=== PATIENT | female | born 2000 | race Caucasian/White ===

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

== ENCOUNTER 2019-02-09 21:29 | Emergency (ER) | payer OTHER ==
[2019-02-09 22:38] VITALS: BP 120/62
--- NOTE | 2019-02-10 00:03 | ER Document Report ---
ED Medical Screen (RME) - General Chief Complaint: Abdominal Pain Stated Complaint: ABDOMINAL PAIN Time Seen by Provider: 02/09/19 23:55 Notes: Patient is a 18-year-old female presents to the emergency department with dysuria suprapubic abdominal pain. Patient states she was seen here end of November early December for pelvic inflammatory disease. States she took 3 different antibiotics and took them to completion. States initially her disc omfort got better in the last couple of days she noticed she has dysuria and some suprapubic abdominal tenderness. Patient states her last menstrual cycle was in early December. States she has not taken an at-home test. GENERAL: Alert, interacts well. No acute distress. ABDOMEN: Soft, suprapubic tenderness noted. Non-distended. Bowel sounds present in all 4 quadrants. I have greeted and performed a rapid initial assessment of this patient. A comprehensive ED assessment and evaluation of the patient, analysis of test results and completion of the medical decision making process will be conducted by additional ED providers. TRAVEL OUTSIDE OF THE [place] IN LAST 30 DAYS: No - Related Data Allergies/Adverse Reactions: No Known Allergies Allergy (Verified 02/09/19 23:40) Past Medical History - Social History Frequency of alcohol use: Occasional Drug Abuse: None Renal/ Medical History: Denies: Hx Peritoneal Dialysis Physical Exam - Vital signs Vitals: Temp Pulse Resp BP Pulse Ox 98.2 F 83 18 120/62 99 02/09/19 22:37 02/09/19 22:37 02/09/19 22:37 02/09/19 22:37 02/09/19 22:37 Course - Vital Signs Vital signs: Temp Pulse Resp BP Pulse Ox 98.2 F 83 18 120/62 99 02/09/19 22:37 02/09/19 22:37 02/09/19 22:37 02/09/19 22:37 02/09/19 22:37
[2019-02-10 00:41] LABS: APPEARANCE,URINE CLOUDY; BILIRUBIN,URINE NEGATIVE (NEGATIVE); COLOR,URINE YELLOW; GLUCOSE, URINE NEGATIVE (NEGATIVE); KETONES,URINE NEGATIVE (NEGATIVE); LEUKOCYTE ESTERASE,URINE LARGE (NEGATIVE); NITRITE,URINE NEGATIVE (NEGATIVE); PROTEIN,URINE 30 mg/dL (NEGATIVE); URINE SPECIFIC GRAVITY 1.035; UROBILINOGEN,URINE NEGATIVE mg/dL (<2.0)
[2019-02-10 02:03] LABS: CHLAM PCR NOT DETECTED (NOT DETECT); GON PCR NOT DETECTED (NOT DETECT)
[2019-02-10 02:47] LABS: BACTERIA (WET MOUNT) 4+ BACTERIA SEEN; RBCS (WET MOUNT) NO RBCS SEEN; T.VAGINALIS (WET MOUNT) NO TRICHOMONAS SEEN; WBCS (WET MOUNT) 4+ WBCS SEEN; YEAST (WET MOUNT) NO YEAST SEEN
[2019-02-10] MEDS ORDERED: CEPHALEXIN 500 MG CAPSULE PO ONE (03:14)
[2019-02-10] MEDS ORDERED: METRONIDAZOLE 500 MG TABLET PO ONE (03:14)
--- NOTE | 2019-02-10 03:17 | ER Document Report ---
HPI - HPI Patient complains to provider of: Dysuria Time Seen by Provider: 02/09/19 23:55 Pain Level: 4 Context: Patient is a 18-year-old female presents to the emergency department with dysuria suprapubic abdominal pain. Patient states she was seen here end of November early December for pelvic inflammatory disease. States she took 3 different antibiotics and took them to completion. States initially her discomfort got better in the last couple of days she noticed she has dysuria and some suprapubic abdominal tenderness. Patient states her last menstrual cycle was in early December. States she has not taken an at-home test. Patient's denying any fever or vomiting. - REPRODUCTIVE Reproductive: DENIES: : - DERM Skin Color: Normal Past Medical History - General Information source: Patient - Social History Smoking Status: Current Every Day Smoker Frequency of alcohol use: Occasional Drug Abuse: None Family History: Reviewed & Not Pertinent Patient has suicidal ideation: No Patient has homicidal ideation: No Renal/ Medical History: Denies: Hx Peritoneal Dialysis Vertical Provider Document - CONSTITUTIONAL Agree With Documented VS: Yes Notes: GENERAL: Alert, interacts well. No acute distress. HEAD: Normocephalic, atraumatic. EYES: Pupils equal, round, and reactive to light. Extraocular movements intact. ENT: Oral mucosa moist, tongue midline. [Nares patent, no nasal septal hematoma, TM's intact.] NECK: Full range of motion. Supple. Trachea midline. LUNGS: Clear to auscultation bilaterally, no wheezes, rales, or rhonchi. No respiratory distress. HEART: Regular rate and rhythm. No murmur ABDOMEN: Soft, non-tender. Non-distended. Bowel sounds present in all 4 quadrants. No suprapubic tenderness noted upon my examination. EXTREMITIES: Moves all 4 extremities spontaneously. No edema, normal radial and dorsalis pedis pulses bilaterally. No cyanosis. BACK: no cervical, thoracic, lumbar midline tenderness. No saddle anesthesia, normal distal neurovascular exam. No CVA tenderness noted bilaterally NEUROLOGICAL: Alert and oriented x3. Normal speech. cranial nerves II through XII grossly intact PSYCH: Normal affect, normal mood. SKIN: Warm, dry, normal turgor. No rashes or lesions noted. Pelvic: [place] [employer] RY[employer] Qu[place]. White malodorous discharge noted in the cul-de-sac, no cervical motion tenderness noted, no adnexal tenderness noted bilaterally. - INFECTION CONTROL TRAVEL OUTSIDE OF THE [place] IN LAST 30 DAYS: No Course - Re-evaluation Re-evalutation: 02/10/19 03:22 Laboratory 02/10/19 02/10/19 02/10/19 00:14 00:14 02:30 Urine Color YELLOW Urine Appearance CLOUDY Urine pH 5.0 Ur Specific [place] 1.035 Urine Protein 30 H Urine Glucose (UA) NEGATIVE Urine Ketones NEGATIVE Urine Blood SMALL H Urine Nitrite NEGATIVE Urine Bilirubin NEGATIVE Urine Urobilinogen NEGATIVE Ur Leukocyte Esterase LARGE H Urine WBC (Auto) 118 Urine RBC (Auto) 6 Squamous Epi Cells Auto 11 Urine Mucus (Auto) RARE Urine Ascorbic Acid NEGATIVE Urine HCG, Qual POSITIVE H Bacteria (Wet Prep) 4+ BACTERIA SEEN Trichomonas (Wet Prep) NO TRICHOMONAS SEEN Vaginal WBC 4+ WBCS SEEN Vaginal RBC NO RBCS SEEN Vaginal Yeast NO YEAST SEEN Chlamydia DNA (PCR) NOT DETECTED N.gonorrhoeae DNA (PCR) NOT DETECTED Upon my examination patient is exhibiting no abdominal discomfort. Patient also has noticed cervical motion tender as noted on pelvic exam. Patient's labs do show signs of urinary tract infection, positive hCG, positive bacterial vaginosis. Will treat for urinary tract infection and bacterial vaginosis. Discussed with patient need to follow-up with the health department for continued care of her . Patient stable for discharge. - Vital Signs Vital signs: Temp Pulse Resp BP Pulse Ox 98.2 F 83 18 120/62 99 02/09/19 22:37 02/09/19 22:37 02/09/19 22:37 02/09/19 22:37 02/09/19 22:37 - Laboratory Laboratory results interpreted by me: 02/10/19 00:14 Urine Protein 30 H Urine Blood SMALL H Ur Leukocyte Esterase LARGE H Urine HCG, Qual POSITIVE H Discharge - Discharge Clinical Impression: Bacterial vaginosis Urinary tract infection Qualifiers: Urinary tract infection type: site unspecified Hematuria presence: with hematuria Qualified Code(s): N39.0 - Urinary tract infection, site not specified; R31.9 - Hematuria, unspecified Qualifiers: Weeks of gestation: less than 8 weeks Qualified Code(s): Z3A.01 - Less than 8 weeks gestation of Condition: Stable Disposition: HOME, SELF-CARE Instructions: Urinary Tract Infection ([facility]), Cephalexin ([facility]), Vaginosis, Bacterial ([facility]), ([facility]) Additional Instructions: As we discussed you have been seen and treated in the emergency department for urinary tract infection and bacterial vaginosis. Your urine test is also came back positive. Please make sure you follow-up with the health department for continued care of your current . Please also return to the emergency room should you have any other concerning symptoms to include abdominal pain, vaginal bleeding or any other concerning symptoms. Prescriptions: Cephalexin Monohydrate [Keflex 500 mg Capsule] 500 mg PO BID 7 Days #14 capsule Metronidazole [Flagyl 500 mg Tablet] 500 mg PO BID #14 tablet Referrals: [facility] [NO LOCAL MD] - Follow up as needed
== END 2019-02-10 04:07 | disposition home or self-care (01) ==
LOC: ER 21:29
DX: O23.591 Infection of other part of genital tract in pregnancy, first trimester (principal); O23.41 Unspecified infection of urinary tract in pregnancy, first trimester; R31.9 Hematuria, unspecified; B96.89 Other specified bacterial agents as the cause of diseases classified elsewhere; O99.331 Smoking (tobacco) complicating pregnancy, first trimester; Z3A.01 Less than 8 weeks gestation of pregnancy
CPT/HCPCS: 81001; 81025; 87086; 87210; 87491; 87591; 99283

== ENCOUNTER 2019-05-13 01:47 | Emergency (ER) | payer OTHER ==
[2019-05-13] MEDS ORDERED: ACETAMINOPHEN 325 MG TABLET PO ONE (05:00)
--- NOTE | 2019-05-13 05:17 | ER Document Report ---
Doctor's Note Notes: 05/13/19 05:16 I performed a rapid medical screening exam in triage evaluation the patient. Patient is a 18-year-old female who presents with complaints of right-sided pelvic and right lower quadrant abdominal pain. She is denies any fevers. No vomiting. No diarrhea. No dysuria. She is also had some associated abnormal vaginal discharge and some vaginal spotting. She is 19 weeks . [facility]. She has had no complications with the thus far. She has had previous ultrasounds which were normal. She says this is her first . She says her blood type is A+. On exam patient has some pain that is mainly in the right pelvic region. I have ordered ultrasound and urinalysis to begin her work-up. Also ordered Tylenol for pain. Further orders and work-up and medical decision making will be performed by oncoming medical provider. Dictation of this chart was performed using voice recognition software; therefore, there may be some unintended grammatical errors.
[2019-05-13 05:37] VITALS: BP 96/50
[2019-05-13 05:58] LABS: APPEARANCE,URINE SLIGHTLY-CLOUDY; BILIRUBIN,URINE NEGATIVE (NEGATIVE); COLOR,URINE YELLOW; GLUCOSE, URINE NEGATIVE (NEGATIVE); KETONES,URINE NEGATIVE (NEGATIVE); LEUKOCYTE ESTERASE,URINE MODERATE (NEGATIVE); NITRITE,URINE NEGATIVE (NEGATIVE); PROTEIN,URINE NEGATIVE (NEGATIVE); URINE SPECIFIC GRAVITY 1.003; UROBILINOGEN,URINE NEGATIVE mg/dL (<2.0)
--- NOTE | 2019-05-13 06:55 | RADIOLOGY REPORT (SQ) ---
EXAM DESCRIPTION: US FOLLOW UP COMPLETED DATE/TME: 05/13/2019 05:15 CLINICAL HISTORY: 18 years Female, Right pelvic pain in Comparison: None. TECHNIQUE/LIMITATION: Targeted OB sonogram for requested parameters only. FINDINGS: Single IUP EGA is 17w5d with KEKE of 10/16/19 EFW is 204g Cardiac activity: 135-bpm. ALIDA: Adequate. Placenta: Anterior. No demonstrated abruption or previa. Presentation: Vertex Cervical length: 3.2-cm. Closed appearance. IMPRESSION: Targeted OB sonogram for requested parameters
--- NOTE | 2019-05-13 07:09 | ER Document Report ---
ED GI/ - General Chief Complaint: OB Problem (<20wks) Stated Complaint: PELVIC PAIN AND VAGINAL DISCHARGE Time Seen by Provider: 05/13/19 05:15 Notes: Patient is a 18-year-old female, G1, P0 at reportedly 19 weeks gestation by first ultrasound, that comes emergency department for chief complaint of right- sided pelvic pain, intermittent cramping, intermittent vaginal spotting, and some abnormal vaginal discharge. She states she has been having this for the past several days worse than before but she has been having intermittent cramping and spotting throughout her . She reports her blood type is a positive. She is following with [facility]. She denies trauma, fever, dysuria, flank pain. She denies any diagnosed medical problems. TRAVEL OUTSIDE OF THE [place] IN LAST 30 DAYS: No - Related Data Allergies/Adverse Reactions: No Known Allergies Allergy (Verified 05/13/19 01:59) Past Medical History - General Information source: Patient Last Menstrual Period: 01/11/19 - Social History Smoking Status: Current Every Day Smoker Chew tobacco use (# tins/day): No Frequency of alcohol use: None Drug Abuse: None Lives with: Family Family History: Reviewed & Not Pertinent Patient has suicidal ideation: No Patient has homicidal ideation: No - Past Medical History Cardiac Medical History: Reports: Hx Hypertension Renal/ Medical History: Denies: Hx Peritoneal Dialysis - Immunizations Hx Diphtheria, Pertussis, Tetanus Vaccination: Yes Review of Systems - Review of Systems Constitutional: No symptoms reported EENT: No symptoms reported Cardiovascular: No symptoms reported Respiratory: No symptoms reported Gastrointestinal: See HPI Genitourinary: No symptoms reported Female Genitourinary: See HPI Musculoskeletal: No symptoms reported Skin: No symptoms reported Hematologic/Lymphatic: No symptoms reported Neurological/Psychological: No symptoms reported Physical Exam - Vital signs Vitals: Temp Pulse Resp BP Pulse Ox 98.8 F 92 H 18 119/65 99 05/13/19 01:51 05/13/19 01:51 05/13/19 01:51 05/13/19 01:51 05/13/19 01:51 - Notes Notes: GENERAL: Alert, interacts well. No acute distress. HEAD: Normocephalic, atraumatic. EYES: Pupils equal, round, and reactive to light. Extraocular movements intact. ENT: Oral mucosa moist, tongue midline. Oropharynx unremarkable. Airway patent. Nares patent, no nasal septal hematoma LUNGS: Clear to auscultation bilaterally, no wheezes, rales, or rhonchi. No respiratory distress. HEART: Regular rate and rhythm. No murmur ABDOMEN: Mildly distended consistent with gravid abdomen. Soft, no guarding or rigidity. There is generalized pelvic tenderness, slightly worse on the right, however there is no severe tenderness. GENITOURINARY: No lesions, no bleeding, closed cervix. There is a moderately large amount of vaginal discharge which is whitish in color, there is some tenderness but no severe cervical motion tenderness. EXTREMITIES: Moves all 4 extremities spontaneously. No edema, normal radial and dorsalis pedis pulses bilaterally. No cyanosis. BACK: no cervical, thoracic, lumbar midline tenderness. No saddle anesthesia, normal distal neurovascular exam. Moves all extremities in full range of motion. NEUROLOGICAL: Alert and oriented x3. Normal speech. Cranial nerves II through XII grossly intact. PSYCH: Normal affect, normal mood. SKIN: Warm, dry, normal turgor. No rashes or lesions noted. Course - Re-evaluation Re-evalutation: Patient is well-appearing, unremarkable vital signs. She does have some tenderness in the lower abdomen over the pelvic area, slightly worse on the right. There is no guarding or rigidity, there is no McBurney's tenderness. Physical examination shows moderately large amount of vaginal discharge, some tenderness on speculum exam, no overt cervical motion tenderness. No current bleeding noted. Urinalysis nonspecific, culture placed. Ultrasound is normal with no concerning findings, intrauterine at 17 weeks 5 days. Pelvic exam shows 3+ bacteria, 3+ white blood cells, no trichomonas. Because of patient's symptoms, discharge, bacteria, white blood cells, discussed with patient, decision was made to treat her for a pelvic infection. She is requesting with nausea medication at home, she was provided with Reglan. She has SIDING INSTALLER follow-up. Discussed expectations, follow-up, and return precautions. Patient states understanding and agreement. Stable at time of discharge. - Vital Signs Vital signs: Temp Pulse Resp BP Pulse Ox 98.8 F 64 20 96/50 L 99 05/13/19 01:51 05/13/19 05:35 05/13/19 05:35 05/13/19 05:35 05/13/19 05:35 - Laboratory Laboratory results interpreted by me: 05/13/19 02:37 Ur Leukocyte Esterase MODERATE H Discharge - Discharge Clinical Impression: Pelvic pain Vaginal discharge during Qualifiers: Trimester: unspecified trimester Qualified Code(s): O26.899 - Other specified related conditions, unspecified trimester Condition: Stable Disposition: HOME, SELF-CARE Additional Instructions: Your work-up shows a normal-appearing , but does show evidence of a pelvic infection. You have been covered for this. I recommend completion of the pelvic infection with the Flagyl at home. Take the Reglan as needed for nausea. Follow-up with SIDING INSTALLER. Return if you worsen including severe worsening pain, fever, uncontrolled vomiting, or any other concerning worsening symptoms. Prescriptions: Metoclopramide HCl [Reglan] 5 mg PO ASDIR PRN #30 tablet PRN Reason: Metronidazole [Flagyl 500 mg Tablet] 500 mg PO BID 7 Days #14 tablet
[2019-05-13 07:30] LABS: BACTERIA (WET MOUNT) 3+ BACTERIA SEEN; EPITHELIALS (WET MOUNT) 3+ EPITHELIALS SEEN; RBCS (WET MOUNT) FEW RBCS SEEN; T.VAGINALIS (WET MOUNT) NO TRICHOMONAS SEEN; WBCS (WET MOUNT) 3+ WBCS SEEN; YEAST (WET MOUNT) NO YEAST SEEN
[2019-05-13] MEDS ORDERED: AZITHROMYCIN 250 MG TABLET PO ONE (07:36)
[2019-05-13] MEDS ORDERED: LIDOCAINE 1% INJ-PF (10 MG/ML) 30 ML SDV INJ ONE (07:36)
[2019-05-13] MEDS ORDERED: CEFTRIAXONE INJ 250 MG VIAL IM ONE (07:36)
[2019-05-13 09:00] LABS: CHLAM PCR NOT DETECTED (NOT DETECT)
== END 2019-05-13 08:12 | disposition home or self-care (01) ==
LOC: ER 01:47
DX: O26.892 Other specified pregnancy related conditions, second trimester (principal); R10.2 Pelvic and perineal pain; N89.8 Other specified noninflammatory disorders of vagina; O26.852 Spotting complicating pregnancy, second trimester; O99.332 Smoking (tobacco) complicating pregnancy, second trimester; F17.200 Nicotine dependence, unspecified, uncomplicated; O16.2 Unspecified maternal hypertension, second trimester; Z3A.17 17 weeks gestation of pregnancy
CPT/HCPCS: 99284; 96374; 96375; 87210; 81001; 87491; 87591; 76805; 93976; J3490; J0696

== ENCOUNTER 2019-05-19 18:07 | Emergency (ER) | payer OTHER, MEDICAID ==
--- NOTE | 2019-05-19 18:45 | ER Document Report ---
ED General - General Chief Complaint: OB Problem (<20wks) Stated Complaint: BLEEDING WITH Time Seen by Provider: 05/19/19 18:26 Primary Care Provider: STORMY JOHNSON MD [Primary Care Provider] - Follow up as needed Notes: 18-year-old female, G1, P0 with estimated gestation 17 weeks 5 days on ultrasound performed here on May 13 for chief complaint of vaginal bleeding and abnormal vaginal discharge. P patient's return precautions upon discharge from previous visit were to return if her bleeding became worse which it did. Patient was prescribed Flagyl for bacterial vaginosis and she has approximately 36 hours left and has been taking it as directed. Patient states the bleeding was heavier than the prior visit like a. And she noticed it on her underwear and when she wiped. She has a cramping in the left lower quadrant and also abdominal pain in the suprapubic area. She states that the bleeding from her previous visit did resolve and started just prior to arrival today. She is followed by [facility]. She denies any trauma, fever, dysuria, flank pain no medical problems. TRAVEL OUTSIDE OF THE [place] IN LAST 30 DAYS: No - Related Data Allergies/Adverse Reactions: No Known Allergies Allergy (Verified 05/13/19 01:59) Past Medical History - Social History Smoking Status: Unknown if Ever Smoked Family History: Reviewed & Not Pertinent - Past Medical History Cardiac Medical History: Reports: Hx Hypertension Renal/ Medical History: Denies: Hx Peritoneal Dialysis - Immunizations Hx Diphtheria, Pertussis, Tetanus Vaccination: Yes Review of Systems - Review of Systems Constitutional: See HPI EENT: No symptoms reported Cardiovascular: No symptoms reported Respiratory: No symptoms reported Gastrointestinal: See HPI Genitourinary: See HPI Female Genitourinary: See HPI Musculoskeletal: See HPI Skin: No symptoms reported Hematologic/Lymphatic: No symptoms reported Neurological/Psychological: No symptoms reported Physical Exam - Vital signs Vitals: Temp Pulse Resp BP Pulse Ox 98.8 F 85 24 140/69 H 97 05/19/19 18:13 05/19/19 18:13 05/19/19 18:13 05/19/19 18:13 05/19/19 18:13 - Notes Notes: PHYSICAL EXAMINATION: Reviewed vital signs and charting by RN GENERAL: Alert, interacts well. No acute distress. HEAD: Normocephalic, atraumatic. EYES: Pupils equal and round. Extraocular movements intact. ENT: Oral mucosa moist, tongue midline. NECK: Full range of motion. Trachea midline. LUNGS: Clear to auscultation bilaterally, no wheezes, rales, or rhonchi. No respiratory distress. HEART: Regular rate and rhythm. No murmur ABDOMEN: soft, mildly gravid abdomen. Bowel sounds present. Acute tenderness to palpation just below the umbilicus and in the left lower quadrant GENITOURINARY: No lesions, no bleeding, closed cervix. There is a moderately large amount of vaginal discharge which is whitish/green in color, tenderness on speculum exam and there was cervical motion tenderness present EXTREMITIES: Moves all 4 extremities spontaneously. No edema, No cyanosis. PSYCH: Normal affect, normal mood. SKIN: Warm, dry, normal turgor. No rashes or lesions noted. Course - Re-evaluation Re-evalutation: 05/19/19 18:49 Patient returns to the ED for vaginal bleeding while and abnormal vaginal discharge. Patient almost completed Flagyl course and has not missed any doses. Plan is to get a repeat ultrasound that is more generalized and perform a pelvic exam. I will get some basic blood work on her today. 05/19/19 22:30 I spoke with the java lead occupational therapy technician Dr. Almaz Williamson who is reassured with all of the patient's findings. She said that there was no risk of bleeding as there was absolutely no blood in the urine even with a contaminated sample, her discharge is leukorrhea, and we could not diagnose her with BV in the absence of using THI and performing a wiff test as our institution truly does not test for BV, per her. Also I asked the ammonia technician to perform an addendum and the patient went back for a transvaginal ultrasound to measure the length of the cervix which was adequate, the cervical loss was closed, and it showed an anterior placenta. At this time I will relay this to the patient and she is stable for discharge with routine follow-up with her java lead. - Vital Signs Vital signs: Temp Pulse Resp BP Pulse Ox 98.8 F 85 24 140/69 H 97 05/19/19 18:13 05/19/19 18:13 05/19/19 18:13 05/19/19 18:13 05/19/19 18:13 - Laboratory Result Diagrams: 05/19/19 18:35 05/19/19 18:35 Laboratory results interpreted by me: 05/19/19 05/19/19 05/19/19 18:35 18:35 18:35 Hgb 11.9 L Hct 34.1 L Sodium 136.1 L Carbon Dioxide 19 L Creatinine 0.46 L Ur Leukocyte Esterase MODERATE H Discharge - Discharge Clinical Impression: Vaginal bleeding during Condition: Good Disposition: HOME, SELF-CARE Additional Instructions: You were seen in the emergency department this evening for abnormal discharge and vaginal bleeding and . After speaking with the java lead occupational therapy technician your work-up was very reassuring and it is most likely due to normal spotting. Also, the white discharge you are experiencing is something called leukorrhea which is a normal finding in . The ultrasound was reassuring and show that you do not have evidence of placenta previa and your cervical loss was closed. All things point to a normal . If you develop truly heavy vaginal bleeding severe intractable abdominal pain, you become dizzy/lightheaded/passout with vaginal bleeding, you have foul-smelling greenish/yellow vaginal discharge, or you have any other concerning symptoms please immediately return to the emergency department. Referrals: STORMY JOHNSON MD [Primary Care Provider] - Follow up as needed
[2019-05-19 18:50] LABS: ABSOLUTE BASOPHILS # (AUTO) 0.1 10^3/uL (0.0-0.2); ABSOLUTE EOSINOPHILS # (AUTO) 0.3 10^3/uL (0.0-0.6); ABSOLUTE LYMPHOCYTES (AUTO) 1.8 10^3/uL (0.5-4.7); ABSOLUTE MONOCYTES (AUTO) 0.5 10^3/uL (0.1-1.4); ABSOLUTE NEUT (AUTO) 6.3 10^3/uL (1.7-8.2); BASOPHILS % (AUTO) 0.8 % (0-2); EOSINOPHILS % (AUTO) 3.4 % (0-6); HEMATOCRIT 34.1 % (36.0-47.0); HEMOGLOBIN 11.9 g/dL (12.0-15.5); LYMPHOCYTES % (AUTO) 19.6 % (13-45); MEAN CORPUSCULAR HEMOGLOBIN 28.7 pg (27.0-33.4); MEAN CORPUSCULAR HGB CONC 34.9 g/dL (32.0-36.0); MEAN CORPUSCULAR VOLUME 82 fl (80-97); MONOCYTES % (AUTO) 5.8 % (3-13); PLATELET COUNT 248 10^3/uL (150-450); RED BLOOD COUNT 4.15 10^6/uL (3.72-5.28); RED CELL DISTRIBUTION WIDTH 13.7 % (11.5-14.0); SEGMENTED NEUTROPHILS % (AUTO) 70.4 % (42-78); TOTAL CELLS COUNTED % (AUTO) 100 %
[2019-05-19 19:05] LABS: APPEARANCE,URINE SLIGHTLY-CLOUDY; BILIRUBIN,URINE NEGATIVE (NEGATIVE); COLOR,URINE YELLOW; GLUCOSE, URINE NEGATIVE (NEGATIVE); KETONES,URINE NEGATIVE (NEGATIVE); LEUKOCYTE ESTERASE,URINE MODERATE (NEGATIVE); NITRITE,URINE NEGATIVE (NEGATIVE); PROTEIN,URINE NEGATIVE (NEGATIVE); URINE SPECIFIC GRAVITY 1.018; UROBILINOGEN,URINE NEGATIVE mg/dL (<2.0)
[2019-05-19 19:08] LABS: ALBUMIN 3.8 g/dL (3.7-5.6); ALKALINE PHOSPHATASE 87 U/L (50-135); ANION GAP 11 (5-19); ASPARTATE AMINO TRANSFERASE 18 U/L (5-30); BILIRUBIN,DIRECT 0.2 mg/dL (0.0-0.4); BILIRUBIN,TOTAL 0.2 mg/dL (0.2-1.3); BLOOD UREA NITROGEN 7 mg/dL (7-20); CALCIUM 9.2 mg/dL (8.4-10.2); CARBON DIOXIDE 19 mmol/L (22-30); CHLORIDE 106 mmol/L (98-107); GLUCOSE 97 mg/dL (75-110); POTASSIUM 4.1 mmol/L (3.6-5.0); TOTAL PROTEIN 6.8 g/dL (6.3-8.2)
[2019-05-19 19:34] LABS: BACTERIA (WET MOUNT) 3+ BACTERIA SEEN; EPITHELIALS (WET MOUNT) 3+ EPITHELIALS SEEN; RBCS (WET MOUNT) NO RBCS SEEN; T.VAGINALIS (WET MOUNT) NO TRICHOMONAS SEEN; WBCS (WET MOUNT) 1+ WBCS SEEN; YEAST (WET MOUNT) NO YEAST SEEN
--- NOTE | 2019-05-19 20:59 | RADIOLOGY REPORT (SQ) ---
EXAM DESCRIPTION: US FOLLOW UP COMPLETED DATE/TME: 05/19/2019 18:40 CLINICAL HISTORY: 18 years, Female, vaginal bleeding, periumbilical pain, LLQ pain COMPARISON: None. TECHNIQUE: Axial 2-D grayscale images of the pelvis were performed. Doppler was utilized. LIMITATIONS: None. FINDINGS: Single intrauterine is identified with measurements as follows: Placenta is anterior. presentation is vertex. heart rate is 147 bpm Cervix measures 3.4 cm in length, closed. Biparietal diameter: 4.2 cm Head circumference: 15.1 cm Abdominal circumference: 13.56 cm Femoral length: 2.85 cm Estimated gestational age is 18 weeks and 6 days for an estimated date of delivery of 10/14/2019. Estimated weight is 9 ounces. IMPRESSION: Single viable intrauterine , as above described. No acute findings. copyright 2010 [employer]- All Rights Reserved
[2019-05-19 22:17] LABS: CHLAM PCR NOT DETECTED (NOT DETECT)
[2019-05-19 22:44] VITALS: BP 128/67
== END 2019-05-19 22:44 | disposition home or self-care (01) ==
LOC: ER 18:07
DX: O20.9 Hemorrhage in early pregnancy, unspecified (principal); R10.32 Left lower quadrant pain; Z3A.17 17 weeks gestation of pregnancy
CPT/HCPCS: 36415; 76805; 80053; 81001; 85025; 87210; 87491; 87591; 93976; 99284

== ENCOUNTER 2019-06-04 17:58 | Emergency (ER) | payer OTHER, MEDICAID ==
--- NOTE | 2019-06-04 19:24 | ER Document Report ---
ED Medical Screen (RME) - General Chief Complaint: Vaginal Discharge Stated Complaint: VAGINAL DISCHARGE Time Seen by Provider: 06/04/19 18:47 Primary Care Provider: STORMY JOHNSON MD [Primary Care Provider] - Follow up as needed TRAVEL OUTSIDE OF THE [place] IN LAST 30 DAYS: No - HPI Notes: 06/04/19 18:58 18-year-old female to the emergency department with complaints of green vaginal discharge and lower abdominal cramping for the past 3 weeks. She states that she just found out today that her new tested positive for chlamydia and herpes. She denies any vaginal sores. She is 21 weeks . She denies any fevers, chills. She also admits to sore throat and right ear pain. She states that she is also been struggling with her manic depression. She states that she is been feeling very anxious and depressed recently. She saw her PROCESS COACH on and was referred to a therapist. She is not on anti- antidepressants during this . She denies any suicidal ideation. However she does state that she feels incredibly overwhelmed and finding out today that her has chlamydia and herpes has only made her mental health worse. I performed a medical screening exam on the patient. We will go ahead and order labs as well as pelvic exam with gonorrhea and chlamydia swabs as well as wet mount and urinalysis. Have discussed with patient and she agrees with the plan. She will be bedded on the main side and seen by provider for further management and evaluation. - Related Data Allergies/Adverse Reactions: No Known Allergies Allergy (Verified 05/13/19 01:59) Past Medical History - Social History Frequency of alcohol use: None Drug Abuse: None - Past Medical History Cardiac Medical History: Reports: Hx Hypertension Renal/ Medical History: Denies: Hx Peritoneal Dialysis - Immunizations Hx Diphtheria, Pertussis, Tetanus Vaccination: Yes Physical Exam - Vital signs Vitals: Temp Pulse Resp BP Pulse Ox 99.5 F 99 H 18 128/70 H 96 06/04/19 18:09 06/04/19 18:09 06/04/19 18:09 06/04/19 18:09 06/04/19 18:09 Course - Vital Signs Vital signs: Temp Pulse Resp BP Pulse Ox 99.5 F 99 H 18 128/70 H 96 06/04/19 18:09 06/04/19 18:09 06/04/19 18:09 06/04/19 18:09 06/04/19 18:09 Doctor's Discharge - Discharge Referrals: STORMY JOHNSON MD [Primary Care Provider] - Follow up as needed
[2019-06-04] MEDS ORDERED: AZITHROMYCIN 1 GM SUSP PACKET PO ONE (20:27)
[2019-06-04] MEDS ORDERED: CEFTRIAXONE INJ 250 MG VIAL IM ONE (20:27)
[2019-06-04 20:50] LABS: ABSOLUTE EOSINOPHILS # (AUTO) 0.2 10^3/uL (0.0-0.6); ABSOLUTE LYMPHOCYTES (AUTO) 2.3 10^3/uL (0.5-4.7); ABSOLUTE MONOCYTES (AUTO) 0.5 10^3/uL (0.1-1.4); ABSOLUTE NEUT (AUTO) 6.9 10^3/uL (1.7-8.2); BASOPHILS % (AUTO) 0.2 % (0-2); EOSINOPHILS % (AUTO) 2.4 % (0-6); HEMATOCRIT 33.6 % (36.0-47.0); HEMOGLOBIN 11.7 g/dL (12.0-15.5); MEAN CORPUSCULAR HEMOGLOBIN 29.4 pg (27.0-33.4); MEAN CORPUSCULAR HGB CONC 34.9 g/dL (32.0-36.0); MEAN CORPUSCULAR VOLUME 84 fl (80-97); MONOCYTES % (AUTO) 4.8 % (3-13); PLATELET COUNT 252 10^3/uL (150-450); RED CELL DISTRIBUTION WIDTH 14.1 % (11.5-14.0); SEGMENTED NEUTROPHILS % (AUTO) 69.6 % (42-78); TOTAL CELLS COUNTED % (AUTO) 100 %
[2019-06-04 20:59] LABS: AMORPHOUS SEDIMENT,URINE TRACE /HPF; APPEARANCE,URINE CLOUDY; BILIRUBIN,URINE NEGATIVE (NEGATIVE); COLOR,URINE YELLOW; GLUCOSE, URINE NEGATIVE (NEGATIVE); KETONES,URINE NEGATIVE (NEGATIVE); LEUKOCYTE ESTERASE,URINE SMALL (NEGATIVE); NITRITE,URINE NEGATIVE (NEGATIVE); PROTEIN,URINE NEGATIVE (NEGATIVE); URINE SPECIFIC GRAVITY 1.024; UROBILINOGEN,URINE NEGATIVE mg/dL (<2.0)
[2019-06-04 21:08] LABS: ALBUMIN 4.1 g/dL (3.7-5.6); ALKALINE PHOSPHATASE 99 U/L (50-135); ANION GAP 13 (5-19); ASPARTATE AMINO TRANSFERASE 16 U/L (5-30); BILIRUBIN,DIRECT 0.3 mg/dL (0.0-0.4); BILIRUBIN,TOTAL 0.3 mg/dL (0.2-1.3); BLOOD UREA NITROGEN 10 mg/dL (7-20); CALCIUM 10.1 mg/dL (8.4-10.2); CARBON DIOXIDE 21 mmol/L (22-30); CHLORIDE 103 mmol/L (98-107); GLUCOSE 92 mg/dL (75-110); POTASSIUM 4.3 mmol/L (3.6-5.0); TOTAL PROTEIN 7.1 g/dL (6.3-8.2)
[2019-06-04 21:09] LABS: ACETAMINOPHEN < 10 ug/mL (10-30); ALCOHOL < 10 mg/dL (NONE DETECTED); SALICYLATE < 1.0 mg/dL (2.0-20.0)
[2019-06-04 21:11] LABS: URINE AMPHETAMINES SCREEN NEGATIVE; URINE BARBITURATES SCREEN NEGATIVE; URINE BENZODIAZEPINES SCREEN NEGATIVE; URINE COCAINE SCREEN NEGATIVE; URINE MARIJUANA (THC) SCREEN NEGATIVE; URINE METHADONE SCREEN NEGATIVE; URINE PHENCYCLIDINE SCREEN NEGATIVE
--- NOTE | 2019-06-04 22:06 | ER Document Report ---
ED General - General Chief Complaint: Vaginal Discharge Stated Complaint: VAGINAL DISCHARGE Time Seen by Provider: 06/04/19 18:47 Primary Care Provider: STORMY JOHNSON MD [Primary Care Provider] - Follow up as needed TRAVEL OUTSIDE OF THE [place] IN LAST 30 DAYS: No - HPI Notes: Patient presents complaining of vaginal discharge. She states that she has had vaginal discharge during this for several weeks now. Initially she was diagnosed with bacterial vaginosis. She states she finished this treatment but still has discharge and now it is green. She states that her was recently diagnosed with chlamydia and herpes. Patient states that she does not have vaginal pain or lesions. She denies any abdominal pain. There is been no vaginal bleeding. She states she is 21 weeks . She is still feeling the baby move. No fevers. Patient states she does have some itching around the vaginal area. The symptoms are mild. They are intermittent. Nothing makes them better or worse. There is no radiation of the symptoms. Patient also states she has been suffering from depression and would like to speak to psychiatry. She states she does not have any suicidal homicidal ideation. She denies any problems with hearing voices or visual hallucinations. - Related Data Allergies/Adverse Reactions: No Known Allergies Allergy (Verified 05/13/19 01:59) Past Medical History - General Information source: Patient - Social History Smoking Status: Current Every Day Smoker Frequency of alcohol use: None Drug Abuse: None Family History: Reviewed & Not Pertinent Patient has suicidal ideation: No Patient has homicidal ideation: No - Past Medical History Cardiac Medical History: Reports: Hx Hypertension Renal/ Medical History: Denies: Hx Peritoneal Dialysis Psychiatric Medical History: Reports: Hx Depression - Immunizations Hx Diphtheria, Pertussis, Tetanus Vaccination: Yes Review of Systems - Review of Systems Constitutional: denies: Chills, Fever Cardiovascular: denies: Chest pain, Dyspnea Respiratory: denies: Cough, Short of breath -: Yes All other systems reviewed and negative Physical Exam - Vital signs Vitals: Temp Pulse Resp BP Pulse Ox 99.5 F 99 H 18 128/70 H 96 06/04/19 18:09 06/04/19 18:09 06/04/19 18:09 06/04/19 18:09 06/04/19 18:09 Interpretation: Normal - General General appearance: Appears well, Alert - HEENT Head: Normocephalic, Atraumatic Eyes: Normal Pupils: PERRL - Respiratory Respiratory status: No respiratory distress Chest status: Nontender Breath sounds: Normal Chest palpation: Normal - Cardiovascular Rhythm: Regular Heart sounds: Normal auscultation Murmur: No - Abdominal Inspection: Normal Distension: No distension Bowel sounds: Normal Tenderness: Nontender Organomegaly: No organomegaly - Back Back: Normal, Nontender - Extremities General upper extremity: Normal inspection, Nontender, Normal color, Normal ROM, Normal temperature General lower extremity: Normal inspection, Nontender, Normal color, Normal ROM, Normal temperature, Normal weight bearing. No: Luis's sign - Neurological Neuro grossly intact: Yes Cognition: Normal Orientation: AAOx4 [place] Coma Scale Eye Opening: Spontaneous [place] Coma Scale Verbal: Oriented [place] Coma Scale Motor: Obeys Commands [place] Coma Scale Total: 15 Speech: Normal Motor strength normal: LUE, RUE, LLE, RLE Sensory: Normal - Psychological Associated symptoms: Depressed, Tearful - Skin Skin Temperature: Warm Skin Moisture: Dry Skin Color: Normal Course - Re-evaluation Re-evalutation: 06/04/19 22:04 Patient's laboratories are unremarkable. She has good heart tones. Patient has been treated for cyclic transmitted diseases. She has been referred to psychiatry for evaluation in the morning. I have also spoke with the FLAT POLISHER on-call. They will follow patient up in clinic. - Vital Signs Vital signs: Temp Pulse Resp BP Pulse Ox 99.5 F 99 H 18 128/70 H 96 06/04/19 18:09 06/04/19 18:09 06/04/19 18:09 06/04/19 18:09 06/04/19 18:09 - Laboratory Result Diagrams: 06/04/19 20:33 06/04/19 20:33 Laboratory results interpreted by me: 06/04/19 06/04/19 06/04/19 20:33 20:33 20:33 Hgb 11.7 L Hct 33.6 L RDW 14.1 H Carbon Dioxide 21 L Creatinine 0.43 L Ur Leukocyte Esterase SMALL H Salicylates < 1.0 L Acetaminophen < 10 L Discharge - Discharge Clinical Impression: Vaginal discharge during in second trimester, Depression affecting in second trimester, antepartum Condition: Good Disposition: PSYCH HOSP/UNIT Referrals: STORMY JOHNSON MD [Primary Care Provider] - Follow up as needed
[2019-06-05] MEDS ORDERED: LOPERAMIDE HCL 2 MG CAPSULE PO ONE (02:23)
[2019-06-05 08:49] VITALS: BP 118/57
--- NOTE | 2019-06-05 10:41 | ER Document Report ---
Doctor's Note Notes: 06/05/19 10:40 Rounds: Chart reviewed and patient interviewed. Patient is complaining of lower back pain. 21 weeks . Patient is being evaluated for depression. Vital signs are all essentially normal. Lab studies were all essentially normal. Patient appears to be medically stable for transfer or discharge. Sheree Bell MD
--- NOTE | 2019-06-05 10:50 | PSYCHOLOGICAL NOTE ---
Psych Note - Psych Note Date seen by psych provider: 06/05/19 Time seen by psych provider: 07:23 - Chart review at 0723. Evaluation from [id number]. Psych Note: Presenting Problem: HX MH (manic depression, PTSD, KAROLINE), untreated for a couple years, 21 weeks , just found out has 2 STDs, patient just moved back to [place], lost a job due to anxiety. Saw LEASES AND LAND SUPERVISOR who made referral to [facility] for 06/18/19. Patient denied SI. She stated "I just want a plan of action for of something else happens and I feel like i can't handle it." She was alert and oriented x5 with linear thinking, good eye contact, engaged in evaluation and conversational speech was within normal limits for rate/tone/prosody. Diagnosis: 21 weeks PTSD by Hx Impression/Plan: Patient is cleared from acute psychiatric services. She denied SI/HI and no observed psychosis. Patient was alert and oriented x5 with linear thinking, good eye contact, engaged in evaluation and conversational speech was within normal limits for rate/tone/prosody. She was encouraged to attend appointment her LEASES AND LAND SUPERVISOR made at [facility] on 06/18/19. Provided outpatient MH resource sheet which highlighted IFS MCM for crisis, talk therapy and linkage to other services/supports. Also provided information for [facility] program CC4C (Care Coordination for Children). Consulted with Dr. Russo regarding the management and care of patient. ED Physician in agreement with recommendations.
[2019-06-05] MEDS ORDERED: ACETAMINOPHEN 325 MG TABLET PO ONE (10:53)
== END 2019-06-05 12:17 | disposition home or self-care (01) ==
LOC: ER 17:58
DX: O99.342 Other mental disorders complicating pregnancy, second trimester (principal); O26.892 Other specified pregnancy related conditions, second trimester; N89.8 Other specified noninflammatory disorders of vagina; Z3A.21 21 weeks gestation of pregnancy
CPT/HCPCS: 36415; 87086; 80307 ×4; 85025; 80053; 81001; Q0144; J0696

== ENCOUNTER 2019-07-09 19:52 | Outpatient (CLI) | payer OTHER, MEDICAID ==
[2019-07-09 21:39] LABS: T.VAGINALIS (WET MOUNT) NO TRICHOMONAS SEEN; WBCS (WET MOUNT) 3+ WBCS SEEN; YEAST (WET MOUNT) NO YEAST SEEN
[2019-07-09 21:40] LABS: BACTERIA (WET MOUNT) 4+ BACTERIA SEEN; EPITHELIALS (WET MOUNT) 4+ EPITHELIALS SEEN; RBCS (WET MOUNT) NO RBCS SEEN
[2019-07-09 21:46] LABS: APPEARANCE,URINE SLIGHTLY-CLOUDY; BILIRUBIN,URINE NEGATIVE (NEGATIVE); COLOR,URINE YELLOW; GLUCOSE, URINE NEGATIVE (NEGATIVE); KETONES,URINE NEGATIVE (NEGATIVE); LEUKOCYTE ESTERASE,URINE NEGATIVE (NEGATIVE); NITRITE,URINE NEGATIVE (NEGATIVE); PROTEIN,URINE NEGATIVE (NEGATIVE); URINE SPECIFIC GRAVITY 1.027; UROBILINOGEN,URINE NEGATIVE mg/dL (<2.0)
[2019-07-09 21:53] LABS: URINE AMPHETAMINES SCREEN NEGATIVE; URINE BARBITURATES SCREEN NEGATIVE; URINE BENZODIAZEPINES SCREEN NEGATIVE; URINE COCAINE SCREEN NEGATIVE; URINE MARIJUANA (THC) SCREEN NEGATIVE; URINE METHADONE SCREEN NEGATIVE; URINE PHENCYCLIDINE SCREEN NEGATIVE
[2019-07-09 23:54] LABS: CHLAM PCR NOT DETECTED (NOT DETECT)
--- NOTE | 2019-07-10 00:20 | RADIOLOGY REPORT (SQ) ---
EXAM DESCRIPTION: US LIMITED COMPLETED DATE/TME: 07/09/2019 23:09 CLINICAL HISTORY: 18 years, Female, Transvaginal cervical length 25 wk IUP, cramping COMPARISON: Prior ultrasound age [age] TECHNIQUE: Emergent Limited OB ultrasound LIMITATIONS: None. FINDINGS: There is a single, live intrauterine gestation in a transverse lie presentation. Amniotic fluid index 17.1 cm. Cervical length 3.9 cm. heart tones obtained at 143 bpm. The placenta is anterior in location with a grade 1 echotexture. No evidence for previa. Current clinical age 25 weeks 5 days. IMPRESSION: Single, live IUP as above. Nonemergent follow-up is recommended copyright 2010 [employer]- All Rights Reserved
== END 2019-07-10 00:59 | disposition home or self-care (01) ==
LOC: LC 19:52
PROVIDERS: ATTEND Obstetrics & Gynecology Gynecology
PROC: 4A1HXCZ Monitoring of Products of Conception, Cardiac Rate, External Approach (ICD-10-PCS; principal; 2019-07-09)
DX: O26.892 Other specified pregnancy related conditions, second trimester (principal); R51 Headache; R42 Dizziness and giddiness; Z3A.25 25 weeks gestation of pregnancy
CPT/HCPCS: 76815; 80307; 81001; 87210; 87491; 87591

== ENCOUNTER 2019-08-18 12:11 | Outpatient (CLI) | payer OTHER, MEDICAID ==
[2019-08-18 13:04] LABS: BACTERIA (WET MOUNT) 4+ BACTERIA SEEN; EPITHELIALS (WET MOUNT) 3+ EPITHELIALS SEEN; RBCS (WET MOUNT) 1+ RBCS SEEN; T.VAGINALIS (WET MOUNT) NO TRICHOMONAS SEEN; WBCS (WET MOUNT) 4+ WBCS SEEN; YEAST (WET MOUNT) NO YEAST SEEN
[2019-08-18 13:10] LABS: AMORPHOUS SEDIMENT,URINE TRACE /HPF; APPEARANCE,URINE CLOUDY; BILIRUBIN,URINE NEGATIVE (NEGATIVE); COLOR,URINE YELLOW; GLUCOSE, URINE NEGATIVE (NEGATIVE); KETONES,URINE NEGATIVE (NEGATIVE); LEUKOCYTE ESTERASE,URINE TRACE (NEGATIVE); NITRITE,URINE NEGATIVE (NEGATIVE); PROTEIN,URINE NEGATIVE (NEGATIVE); URINE SPECIFIC GRAVITY 1.019; UROBILINOGEN,URINE NEGATIVE mg/dL (<2.0)
[2019-08-18 13:26] LABS: URINE AMPHETAMINES SCREEN NEGATIVE; URINE BARBITURATES SCREEN NEGATIVE; URINE BENZODIAZEPINES SCREEN NEGATIVE; URINE COCAINE SCREEN NEGATIVE; URINE MARIJUANA (THC) SCREEN NEGATIVE; URINE METHADONE SCREEN NEGATIVE; URINE PHENCYCLIDINE SCREEN NEGATIVE
[2019-08-18 14:28] LABS: CHLAM PCR NOT DETECTED (NOT DETECT)
--- NOTE | 2019-08-18 15:23 | Non Stress Test Report ---
Non Stress Test Datetime Report Generated by CPN: 08/18/2019 15:22 DEMOGRAPHIC EGA NST: 31.2 INDICATION Indication for Study: Ordered by Provider Indication for Study (NST) Other: vaginal discharge VITAL SIGNS Temperature - NST: 98.0 Pulse - NST: 86 RESP - NST: 16 NBPSYS NST: 102 NBPDIA NST: 58 MONITORING Monitor Explained: Monitor Explained; Test Explained; Patient Verbalized Understanding Time on Monitor: 08/18/2019 12:51 Time off Monitor: 08/18/2019 14:22 NST Duration: 91 NST INTERVENTIONS NST Interventions: None Physician Notified NST: Dr Luis A BABY A: [id number] BABY A Movement : Present Contraction Frequency : none FHR Baseline : 135 Accelerations : 15X15 Decelerations : None Variability : Moderate 6-25bpm NST Review: Meets Criteria for Reactive NST NST Review and Verified By : RYAN Clay Results: Reactive NST REPORT Report Trigger: Send Report
== END 2019-08-18 15:02 | disposition home or self-care (01) ==
LOC: LC 12:11
PROVIDERS: ATTEND Obstetrics & Gynecology
PROC: 4A1HXCZ Monitoring of Products of Conception, Cardiac Rate, External Approach (ICD-10-PCS; principal; 2019-08-18)
DX: O23.593 Infection of other part of genital tract in pregnancy, third trimester (principal); N76.0 Acute vaginitis; Z3A.31 31 weeks gestation of pregnancy
CPT/HCPCS: 59025; 80307; 81001; 84112; 87210; 87491; 87591

== ENCOUNTER 2019-08-23 14:31 | Outpatient (CLI) | payer OTHER, MEDICAID ==
[2019-08-23] MEDS ORDERED: BETAMET ACET/BETAMET NA INJ 6 MG/1 ML IM ONE (15:12)
[2019-08-23] MEDS ORDERED: BETAMET ACET/BETAMET NA INJ 6 MG/1 ML ONE (15:20)
[2019-08-23 16:29] LABS: APPEARANCE,URINE SLIGHTLY-CLOUDY; BILIRUBIN,URINE NEGATIVE (NEGATIVE); COLOR,URINE YELLOW; GLUCOSE, URINE NEGATIVE (NEGATIVE); KETONES,URINE NEGATIVE (NEGATIVE); LEUKOCYTE ESTERASE,URINE TRACE (NEGATIVE); NITRITE,URINE NEGATIVE (NEGATIVE); PROTEIN,URINE NEGATIVE (NEGATIVE); URINE SPECIFIC GRAVITY 1.021; UROBILINOGEN,URINE NEGATIVE mg/dL (<2.0)
[2019-08-23 16:45] LABS: URINE AMPHETAMINES SCREEN NEGATIVE; URINE BARBITURATES SCREEN NEGATIVE; URINE BENZODIAZEPINES SCREEN NEGATIVE; URINE COCAINE SCREEN NEGATIVE; URINE MARIJUANA (THC) SCREEN NEGATIVE; URINE METHADONE SCREEN NEGATIVE; URINE PHENCYCLIDINE SCREEN NEGATIVE
== END 2019-08-23 16:49 | disposition home or self-care (01) ==
LOC: LC 14:31
PROVIDERS: ATTEND Obstetrics & Gynecology
PROC: 4A1HXCZ Monitoring of Products of Conception, Cardiac Rate, External Approach (ICD-10-PCS; principal; 2019-08-23)
DX: O60.03 Preterm labor without delivery, third trimester (principal); O99.333 Smoking (tobacco) complicating pregnancy, third trimester; F17.210 Nicotine dependence, cigarettes, uncomplicated; Z3A.32 32 weeks gestation of pregnancy
CPT/HCPCS: 59025; 96372; 81001; 80307; J0702

== ENCOUNTER 2019-08-24 14:52 | Outpatient (CLI) | payer OTHER, MEDICAID ==
[2019-08-24] MEDS ORDERED: BETAMET ACET/BETAMET NA INJ 6 MG/1 ML ONE (14:55)
[2019-08-24] MEDS ORDERED: BETAMET ACET/BETAMET NA INJ 6 MG/1 ML IM ONE (14:56)
== END 2019-08-24 14:58 | disposition home or self-care (01) ==
LOC: LC 14:52
PROVIDERS: ATTEND Obstetrics & Gynecology Gynecology
PROC: 4A1HXCZ Monitoring of Products of Conception, Cardiac Rate, External Approach (ICD-10-PCS; principal; 2019-08-24)
DX: O60.03 Preterm labor without delivery, third trimester (principal); O99.333 Smoking (tobacco) complicating pregnancy, third trimester; F17.210 Nicotine dependence, cigarettes, uncomplicated; Z3A.32 32 weeks gestation of pregnancy
CPT/HCPCS: 59025; 96372; J0702

== ENCOUNTER 2019-08-25 07:50 | Outpatient (CLI) | payer OTHER, MEDICAID ==
[2019-08-25 08:39] LABS: APPEARANCE,URINE SLIGHTLY-CLOUDY; BILIRUBIN,URINE NEGATIVE (NEGATIVE); COLOR,URINE YELLOW; GLUCOSE, URINE NEGATIVE (NEGATIVE); KETONES,URINE NEGATIVE (NEGATIVE); LEUKOCYTE ESTERASE,URINE NEGATIVE (NEGATIVE); NITRITE,URINE NEGATIVE (NEGATIVE); PROTEIN,URINE NEGATIVE (NEGATIVE); URINE SPECIFIC GRAVITY 1.013; UROBILINOGEN,URINE NEGATIVE mg/dL (<2.0)
[2019-08-25 09:02] LABS: URINE AMPHETAMINES SCREEN NEGATIVE; URINE BARBITURATES SCREEN NEGATIVE; URINE BENZODIAZEPINES SCREEN NEGATIVE; URINE COCAINE SCREEN NEGATIVE; URINE MARIJUANA (THC) SCREEN NEGATIVE; URINE METHADONE SCREEN NEGATIVE; URINE PHENCYCLIDINE SCREEN NEGATIVE
--- NOTE | 2019-08-25 12:17 | Non Stress Test Report ---
Non Stress Test Datetime Report Generated by CPN: 08/25/2019 12:17 DEMOGRAPHIC EGA NST: 32.2 MONITORING Monitor Explained: Monitor Explained; Test Explained; Patient Verbalized Understanding Time on Monitor: 08/25/2019 08:11 Time off Monitor: 08/25/2019 09:20 NST Duration: 69 NST INTERVENTIONS NST Interventions: PO Hydration; Reposition Patient (Annotations: Data stored by N on behalf of user) Physician Notified NST: Dr. Younger BABY A: [id number] BABY A Movement : Present Contraction Frequency : 0 FHR Baseline : 135 Accelerations : 15X15 Decelerations : None Variability : Moderate 6-25bpm NST Review: Meets Criteria for Reactive NST NST Review and Verified By : Tomás Huang RN NST Results: Reactive NST REPORT Report Trigger: Send Report
--- NOTE | 2019-08-25 12:36 | RADIOLOGY REPORT (SQ) ---
EXAM DESCRIPTION: U/S OB LIMITED COMPLETED DATE/TIME: 08/25/2019 9:53 am REASON FOR STUDY: CL for cramping and pressure COMPARISON: None. TECHNIQUE: Limited transvaginal and transabdominal grayscale ultrasound for evaluation of specific r equested obstetrical parameters. LIMITATIONS: None. FINDINGS: CERVICAL LENGTH: 3.7 cm Closed. ALIDA: Total ALIDA 15.3 cm. FHR: 132 beats per minute. PRESENTATION: Cephalic. PLACENTA: Anterior grade 2 ANATOMY: Not assessed OTHER: No other significant findings. IMPRESSION: LIMITED OBSTETRICAL ULTRASOUND WITH MEASURED PARAMETERS DELINEATED ABOVE. Trimester of : Third trimester - 28 weeks to delivery. TECHNICAL DOCUMENTATION: JOB ID: [id number] [employer]- All Rights Reserved Reading location - IP/workstation name: [email or web address]
== END 2019-08-25 12:22 | disposition home or self-care (01) ==
LOC: LC 07:50
PROVIDERS: ATTEND Obstetrics & Gynecology Gynecology
PROC: 4A1HXCZ Monitoring of Products of Conception, Cardiac Rate, External Approach (ICD-10-PCS; principal; 2019-08-25)
DX: O36.8130 Decreased fetal movements, third trimester, not applicable or unspecified (principal); O26.893 Other specified pregnancy related conditions, third trimester; R10.9 Unspecified abdominal pain; Z3A.32 32 weeks gestation of pregnancy
CPT/HCPCS: 59025; 76815; 80307; 81001

== ENCOUNTER 2019-09-03 20:17 | Outpatient (CLI) | payer OTHER, MEDICAID ==
[2019-09-03 21:11] LABS: AMORPHOUS SEDIMENT,URINE TRACE /HPF; APPEARANCE,URINE CLOUDY; BILIRUBIN,URINE NEGATIVE (NEGATIVE); COLOR,URINE YELLOW; GLUCOSE, URINE NEGATIVE (NEGATIVE); KETONES,URINE NEGATIVE (NEGATIVE); LEUKOCYTE ESTERASE,URINE SMALL (NEGATIVE); NITRITE,URINE NEGATIVE (NEGATIVE); PROTEIN,URINE 30 mg/dL (NEGATIVE); URINE SPECIFIC GRAVITY 1.024; UROBILINOGEN,URINE NEGATIVE mg/dL (<2.0)
[2019-09-03 21:23] LABS: URINE AMPHETAMINES SCREEN NEGATIVE; URINE BARBITURATES SCREEN NEGATIVE; URINE BENZODIAZEPINES SCREEN NEGATIVE; URINE COCAINE SCREEN NEGATIVE; URINE MARIJUANA (THC) SCREEN NEGATIVE; URINE METHADONE SCREEN NEGATIVE; URINE PHENCYCLIDINE SCREEN NEGATIVE
--- NOTE | 2019-09-03 21:26 | Non Stress Test Report ---
Non Stress Test Datetime Report Generated by CPN: 09/03/2019 21:25 DEMOGRAPHIC EGA NST: 33.4 INDICATION Indication for Study (NST) Other: LC MONITORING Monitor Explained: Monitor Explained; Test Explained; Patient Verbalized Understanding Time on Monitor: 09/03/2019 20:34 Time off Monitor: 09/03/2019 20:54 NST Duration: 20 NST INTERVENTIONS NST Interventions: None Physician Notified NST: Dr. Garza BABY A: [id number] BABY A Movement : Present Contraction Frequency : 0 FHR Baseline : 130 Accelerations : 15X15 Decelerations : None Variability : Moderate 6-25bpm NST Review: Meets Criteria for Reactive NST NST Review and Verified By : Carmen Morales RN NST Results: Reactive NST REPORT Report Trigger: Send Report
== END 2019-09-03 21:21 | disposition home or self-care (01) ==
LOC: LC 20:17
PROVIDERS: ATTEND Obstetrics & Gynecology
PROC: 4A1HXCZ Monitoring of Products of Conception, Cardiac Rate, External Approach (ICD-10-PCS; principal; 2019-09-03)
DX: Z34.93 Encounter for supervision of normal pregnancy, unspecified, third trimester (principal)
CPT/HCPCS: 59025; 80307; 81001; 84112

== ENCOUNTER → 2019-12-27 | Outpatient (CLI) | payer OTHER, MEDICAID ==
[2019-12-27 13:28] LABS: ABSOLUTE EOSINOPHILS # (AUTO) 0.3 10^3/uL (0.0-0.6); ABSOLUTE LYMPHOCYTES (AUTO) 1.4 10^3/uL (0.5-4.7); ABSOLUTE MONOCYTES (AUTO) 0.3 10^3/uL (0.1-1.4); ABSOLUTE NEUT (AUTO) 2.9 10^3/uL (1.7-8.2); BASOPHILS % (AUTO) 0.6 % (0-2); EOSINOPHILS % (AUTO) 6.9 % (0-6); HEMATOCRIT 32.2 % (36.0-47.0); LYMPHOCYTES % (AUTO) 28.3 % (13-45); MEAN CORPUSCULAR HEMOGLOBIN 26.7 pg (27.0-33.4); MEAN CORPUSCULAR VOLUME 78 fl (80-97); PLATELET COUNT 296 10^3/uL (150-450); RED BLOOD COUNT 4.11 10^6/uL (3.72-5.28); RED CELL DISTRIBUTION WIDTH 15.8 % (11.5-14.0); SEGMENTED NEUTROPHILS % (AUTO) 58.2 % (42-78); TOTAL CELLS COUNTED % (AUTO) 100 %; WHITE BLOOD COUNT 4.9 10^3/uL (4.0-10.5)
[2019-12-27 13:54] LABS: ALBUMIN 4.2 g/dL (3.5-5.0); ALKALINE PHOSPHATASE 105 U/L (38-126); ANION GAP 11 (5-19); ASPARTATE AMINO TRANSFERASE 28 U/L (14-36); BILIRUBIN,DIRECT 0.3 mg/dL (0.0-0.4); BILIRUBIN,TOTAL 0.4 mg/dL (0.2-1.3); BLOOD UREA NITROGEN 17 mg/dL (7-20); CALCIUM 9.2 mg/dL (8.4-10.2); CARBON DIOXIDE 23 mmol/L (22-30); CHLORIDE 105 mmol/L (98-107); CHOLESTEROL 200.42 mg/dL (0-200); GLUCOSE 87 mg/dL (75-110); POTASSIUM 4.2 mmol/L (3.6-5.0); TOTAL PROTEIN 7.5 g/dL (6.3-8.2); TRIGLYCERIDES 114 mg/dL (<150)
[2019-12-27 14:05] LABS: DIRECT LDL 124 mg/dL (<100)
[2019-12-27 14:22] LABS: THYROID STIMULATING HORMONE 3.08 uIU/mL (0.47-4.68)
== END ==
LOC: OD 12:30
PROVIDERS: ATTEND Nurse Practitioner Psychiatric/Mental Health
DX: F33.2 Major depressive disorder, recurrent severe without psychotic features (principal); Z79.899 Other long term (current) drug therapy
CPT/HCPCS: 36415; 80053; 80061; 83036; 84439; 84443; 85025; 86376

== ENCOUNTER 2020-01-06 20:01 | Emergency (ER) | payer OTHER, MEDICAID ==
[2020-01-06 20:09] VITALS: BP 144/95
[2020-01-06] MEDS ORDERED: PREDNISONE 20 MG TABLET PO ONE (20:43)
[2020-01-06] MEDS ORDERED: GUAIFENESIN/CODEINE PHOS 100-10 MG/ 5 ML UDC PO ONE (20:43)
--- NOTE | 2020-01-06 21:01 | RADIOLOGY REPORT (SQ) ---
CLINICAL INDICATION: sob. TECHNIQUE: A single portable AP view was obtained of the chest at 2047 hours. COMPARISON: None. FINDINGS: The cardiomediastinal silhouette is normal. The lungs are grossly clear. No evidence of effusion or pneumothorax. The visualized bones are unremarkable. IMPRESSION: No evidence of active intrathoracic disease.
[2020-01-06 21:37] LABS: A TYPE INFLUENZA AG NEGATIVE (NEGATIVE); B INFLUENZA AG NEGATIVE (NEGATIVE)
--- NOTE | 2020-01-06 22:04 | ER Document Report ---
HPI - HPI Time Seen by Provider: 01/06/20 20:06 Pain Level: 3 Notes: Otherwise healthy 19-year-old female presenting to the emergency department chief complaint of diarrhea, fever, shortness of breath and sore throat. Patient reports fever at home of 102.4. She does report last week she was diagnosed with the flu. Denies any nausea or vomiting. - CONSTITUTIONAL Constitutional: REPORTS: Fever, Chills - EENT EENT: REPORTS: Sore Throat, Ear Pain - NEURO Neurology: REPORTS: Headache - CARDIOVASCULAR Cardiovascular: REPORTS: Chest pain - RESPIRATORY Respiratory: REPORTS: Trouble Breathing, Coughing - REPRODUCTIVE LMP: 3 wks ago Reproductive: DENIES: : Past Medical History - General Information source: Patient - Social History Smoking Status: Never Smoker Family History: Reviewed & Not Pertinent Patient has suicidal ideation: No Patient has homicidal ideation: No - Past Medical History Cardiac Medical History: Reports: Hx Hypertension Renal/ Medical History: Denies: Hx Peritoneal Dialysis Psychiatric Medical History: Reports: Hx Depression - Immunizations Hx Diphtheria, Pertussis, Tetanus Vaccination: Yes Vertical Provider Document - CONSTITUTIONAL Notes: PHYSICAL EXAMINATION: GENERAL: Well-appearing, well-nourished and in no acute distress. HEAD: Atraumatic, normocephalic. EYES: Pupils equal round and reactive to light, extraocular movements intact, conjunctiva are normal. ENT: Nares patent, oropharynx mildly erythematous without exudates. Moist mucous membranes. NECK: Normal range of motion, supple without lymphadenopathy LUNGS: Breath sounds clear to auscultation bilaterally and equal. No wheezes rales or rhonchi. HEART: Regular rate and rhythm without murmurs ABDOMEN: Soft, nontender, nondistended abdomen. No guarding, no rebound. No masses appreciated. Female : deferred Musculoskeletal: Normal range of motion, no pitting or edema. No cyanosis. NEUROLOGICAL: Cranial nerves grossly intact. Normal speech, normal gait. Normal sensory, motor exams PSYCH: Normal mood, normal affect. SKIN: Warm, Dry, normal turgor, no rashes or lesions noted. - INFECTION CONTROL TRAVEL OUTSIDE OF THE [place] IN LAST 30 DAYS: No Course - Re-evaluation Re-evalutation: Chest X-Ray 01/06/20 00:00 IMPRESSION: No evidence of active intrathoracic disease. Laboratory 01/06/20 01/06/20 20:43 20:43 Influenza A (Rapid) NEGATIVE Influenza B (Rapid) NEGATIVE Group A Strep Rapid NEGATIVE Labs as recorded above. Patient appears well, nontoxic, she feels better after medications given in the emergency department. She will be discharged home pending throat culture. No indication at this time for COVID-19 testing. - Vital Signs Vital signs: Temp Pulse Resp BP Pulse Ox 98.4 F 90 18 144/95 H 99 01/06/20 20:09 01/06/20 20:09 01/06/20 20:09 01/06/20 20:09 01/06/20 20:09 Discharge - Discharge Clinical Impression: Upper respiratory infection Qualifiers: URI type: unspecified viral URI Qualified Code(s): J06.9 - Acute upper respiratory infection, unspecified Fever Qualifiers: Fever type: unspecified Qualified Code(s): R50.9 - Fever, unspecified Condition: Stable Disposition: HOME, SELF-CARE Instructions: Upper Respiratory Illness ([facility]), Viral Syndrome ([facility]) Additional Instructions: Your work-up today in the emergency department was unremarkable. Your rapid strep test, flu test and chest x-ray were all normal. You likely have a viral upper respiratory illness. Your vital signs were fine so it is safe to discharge you home. Please drink plenty of fluids. Take all medications as prescribed. Try to stay hydrated especially while you are having diarrhea. Follow-up with your primary care provider. Return to the emergency department with any life-threatening concerns. Prescriptions: Benzonatate [Tessalon Perles 100 mg Capsule] 1 - 2 tab PO Q8HP PRN #30 capsule PRN Reason: Prednisone [Deltasone 20 mg Tablet] 3 tab PO DAILY 5 Days #15 tablet Ondansetron [Zofran Odt 4 mg Tablet] 1 - 2 tab PO Q4H PRN #15 tab.rapdis PRN Reason: For Nausea/Vomiting
== END 2020-01-06 22:17 | disposition home or self-care (01) ==
LOC: ER 20:01
DX: J06.9 Acute upper respiratory infection, unspecified (principal); B97.89 Other viral agents as the cause of diseases classified elsewhere; R19.7 Diarrhea, unspecified; R50.9 Fever, unspecified; J02.9 Acute pharyngitis, unspecified; R06.02 Shortness of breath; H92.09 Otalgia, unspecified ear; R07.9 Chest pain, unspecified; R51 Headache; I10 Essential (primary) hypertension
CPT/HCPCS: 99283; 87070; 87880; 87077; 87804; 71045; J7512

== ENCOUNTER 2020-02-17 17:20 | Emergency (ER) | payer OTHER, MEDICAID ==
--- NOTE | 2020-02-17 17:36 | ER Document Report ---
ED Medical Screen (RME) - General Chief Complaint: Abdominal Cramping Stated Complaint: ABDOMINAL CRAMPING Time Seen by Provider: 02/17/20 17:26 Mode of Arrival: Ambulatory Information source: Patient Notes: 19-year-old female with history of interstitial cystitis G2, P1 presents to the emergency department with complaints of pelvic pain cramping and vaginal spotting and back pain since . Patient is unsure of how she is. Reports last full menstrual period was in December. She reports she had some scant bleeding in January. Patient did go to [facility] this past and had a pelvic done, labs, UA. She was informed everything was negative. Patient was informed of but not instructed on her HCG level. Patient also went to see a urologist on Tuesday and was told about the interstitial cystitis. Patient reports she has had some vaginal brown spotting discharge mostly at night. Patient reports she took 2 Tylenol prior to arrival without relief of symptoms. I have greeted and performed a rapid initial assessment of this patient. A comprehensive ED assessment and evaluation of the patient, analysis of test results and completion of the medical decision making process will be conducted by additional ED providers. TRAVEL OUTSIDE OF THE [place] IN LAST 30 DAYS: No - Related Data Allergies/Adverse Reactions: No Known Allergies Allergy (Verified 08/23/19 15:45) Past Medical History - Past Medical History Cardiac Medical History: Reports: Hx Hypertension Renal/ Medical History: Denies: Hx Peritoneal Dialysis Psychiatric Medical History: Reports: Hx Depression - Immunizations Hx Diphtheria, Pertussis, Tetanus Vaccination: Yes Physical Exam - Vital signs Vitals: Temp Pulse Resp BP Pulse Ox 98.3 F 99 19 129/76 H 95 02/17/20 17:23 02/17/20 17:23 02/17/20 17:23 02/17/20 17:23 02/17/20 17:23 Course - Vital Signs Vital signs: Temp Pulse Resp BP Pulse Ox 98.3 F 99 19 129/76 H 95 02/17/20 17:23 02/17/20 17:23 02/17/20 17:23 02/17/20 17:23 02/17/20 17:23
[2020-02-17 17:58] LABS: ABSOLUTE LYMPHOCYTES (AUTO) 1.8 10^3/uL (0.5-4.7); ABSOLUTE MONOCYTES (AUTO) 0.4 10^3/uL (0.1-1.4); BASOPHILS % (AUTO) 0.3 % (0-2); SEGMENTED NEUTROPHILS % (AUTO) 65.5 % (42-78); TOTAL CELLS COUNTED % (AUTO) 100 %
[2020-02-17 18:04] LABS: ABSOLUTE EOSINOPHILS # (AUTO) 0.2 10^3/uL (0.0-0.6); ABSOLUTE NEUT (AUTO) 4.7 10^3/uL (1.7-8.2); APPEARANCE,URINE SLIGHTLY-CLOUDY; BILIRUBIN,URINE NEGATIVE (NEGATIVE); COLOR,URINE YELLOW; EOSINOPHILS % (AUTO) 3.4 % (0-6); GLUCOSE, URINE NEGATIVE (NEGATIVE); HEMATOCRIT 31.6 % (36.0-47.0); HEMOGLOBIN 10.8 g/dL (12.0-15.5); KETONES,URINE NEGATIVE (NEGATIVE); LEUKOCYTE ESTERASE,URINE SMALL (NEGATIVE); MEAN CORPUSCULAR HEMOGLOBIN 26.7 pg (27.0-33.4); MEAN CORPUSCULAR HGB CONC 34.1 g/dL (32.0-36.0); MEAN CORPUSCULAR VOLUME 78 fl (80-97); MONOCYTES % (AUTO) 5.8 % (3-13); NITRITE,URINE NEGATIVE (NEGATIVE); PLATELET COUNT 324 10^3/uL (150-450); PROTEIN,URINE NEGATIVE (NEGATIVE); RED BLOOD COUNT 4.02 10^6/uL (3.72-5.28); RED CELL DISTRIBUTION WIDTH 16.1 % (11.5-14.0); URINE SPECIFIC GRAVITY 1.025; UROBILINOGEN,URINE NEGATIVE mg/dL (<2.0); WHITE BLOOD COUNT 7.2 10^3/uL (4.0-10.5)
[2020-02-17 18:14] LABS: ALBUMIN 3.9 g/dL (3.5-5.0); ALKALINE PHOSPHATASE 79 U/L (38-126); ANION GAP 8 (5-19); ASPARTATE AMINO TRANSFERASE 23 U/L (14-36); BILIRUBIN,TOTAL 0.2 mg/dL (0.2-1.3); BLOOD UREA NITROGEN 12 mg/dL (7-20); CALCIUM 9.5 mg/dL (8.4-10.2); CARBON DIOXIDE 25 mmol/L (22-30); CHLORIDE 103 mmol/L (98-107); GLUCOSE 127 mg/dL (75-110); POTASSIUM 4.4 mmol/L (3.6-5.0); TOTAL PROTEIN 6.9 g/dL (6.3-8.2)
--- NOTE | 2020-02-17 18:51 | RADIOLOGY REPORT (SQ) ---
EXAM DESCRIPTION: U/S OB TRANSVAGINAL W/O DOP IMAGES COMPLETED DATE/TIME: 02/17/2020 6:42 pm REASON FOR STUDY: preg, vag spotting, pelvic pain COMPARISON: None. TECHNIQUE: Transvaginal static and realtime grayscale images acquired of the pelvis. Additional janice cted spectral and color Doppler images recorded. All images stored on PACs. CLINICAL AGE: 8 weeks [facility] LIMITATIONS: None. FINDINGS: UTERUS: No visualized intrauterine . RIGHT ADNEXA: Ovary not identified due to poor acoustical window. No adnexal free fluid. No adnexal masses. LEFT ADNEXA: Normal ovary with normal vascular flow. No adnexal free fluid. No adnexal masses. FREE FLUID: None. OTHER: No other significant finding. IMPRESSION: NO VISUALIZED INTRA- OR EXTRAUTERINE . bHCG LEVEL TOO LOW TO EXPECT VISUALIZATION OF . ECTOPIC CANNOT BE EXCLUDED. FOLLOW-UP ULTRASOUND AND SERIAL BHCG LEVELS STRONGLY RECOMMENDED TO ACCURATELY ASSESS STATU S. TECHNICAL DOCUMENTATION: JOB ID: [id number] 2010 [employer]- All Rights Reserved Reading location - IP/workstation name: [email or web address]
--- NOTE | 2020-02-17 18:56 | ER Document Report ---
ED GI/ - General Chief Complaint: Abdominal Pain Stated Complaint: ABDOMINAL CRAMPING Time Seen by Provider: 02/17/20 17:26 Primary Care Provider: EFE PATEL MD [ACTIVE STAFF] - Follow up tomorrow (call tomorrow for follow up appointment in 2 days ) Mode of Arrival: Ambulatory Information source: Patient Notes: 19-year-old female medical history significant for interstitial cystitis 2 para 1 presents to the emergency room with pelvic pain for the past 3 days. Initially she states it was a throbbing sensation today is just mild cramping which she describes to the left lower pelvic region. She denies any nausea, vomiting, mild spotting which she states is a little bit in the morning has not had any bleeding throughout the day. Denies any current bleeding. Patient states she went to the [facility] which started with the pain was told she was . She states they did blood work and a pelvic exam and referred her to a internal communications manager. Patient states she was not given her hormone levels at that time. States she is awaiting a call from her OBs office for an appointment. Taking Tylenol with minimal relief. TRAVEL OUTSIDE OF THE [place] IN LAST 30 DAYS: No - Related Data Allergies/Adverse Reactions: No Known Allergies Allergy (Verified 08/23/19 15:45) Home Medications: zoloft 50 mg. seroquel 50 mg. Past Medical History - General Information source: Patient - Social History Smoking Status: Former Smoker Chew tobacco use (# tins/day): No Frequency of alcohol use: None Drug Abuse: None Lives with: Family Family History: Reviewed & Not Pertinent Patient has homicidal ideation: No - Past Medical History Cardiac Medical History: Reports: Hx Hypertension Renal/ Medical History: Denies: Hx Peritoneal Dialysis Psychiatric Medical History: Reports: Hx Depression - Immunizations Hx Diphtheria, Pertussis, Tetanus Vaccination: Yes Review of Systems - Review of Systems Constitutional: No symptoms reported Cardiovascular: No symptoms reported Respiratory: No symptoms reported Gastrointestinal: denies: Nausea, Vomiting Genitourinary: No symptoms reported Female Genitourinary: , Other - Spotting, pelvic pain Skin: No symptoms reported -: Yes All other systems reviewed and negative Physical Exam - Vital signs Vitals: Temp Pulse Resp BP Pulse Ox 98.3 F 99 19 129/76 H 95 02/17/20 17:23 02/17/20 17:23 02/17/20 17:23 02/17/20 17:23 02/17/20 17:23 - General General appearance: Appears well, Alert In distress: Mild - HEENT Head: Normocephalic, Atraumatic Eyes: Normal Pupils: PERRL - Respiratory Respiratory status: No respiratory distress Chest status: Nontender Breath sounds: Normal Chest palpation: Normal - Cardiovascular Rhythm: Regular Heart sounds: Normal auscultation Murmur: No - Abdominal Inspection: Normal Distension: No distension Bowel sounds: Normal Tenderness: Tender - Mild tenderness to the left lower quadrant. No guarding, no rebound. No: Guarding, Rebound Organomegaly: No organomegaly - Genitourinary External exam: Normal Speculum exam: Normal, Cervix closed. No: Vaginal discharge Vaginal bleeding: None Bimanuel exam: Normal. No: Cervical motion tender, Adnexal mass, Adnexal tenderness, Uterus enlarged Notes: Chaperoned by RYAN Perez - Neurological Neuro grossly intact: Yes Cognition: Normal Orientation: AAOx4 Evergreen Coma Scale Eye Opening: Spontaneous Evergreen Coma Scale Verbal: Oriented Evergreen Coma Scale Motor: Obeys Commands Evergreen Coma Scale Total: 15 Speech: Normal Motor strength normal: LUE, RUE, LLE, RLE Sensory: Normal - Skin Skin Temperature: Warm Skin Moisture: Dry Skin Color: Normal Course - Re-evaluation Re-evalutation: 02/17/20 20:12 Patient is resting comfortably she is currently pain-free. Reviewed all test results with patient. Aware that we cannot rule out ectopic as her hCG is only 295 with left lower quadrant pain. She was counseled on the need to have a repeat hCG in 48 hours. Call your OB tomorrow. If unable to secure an appointment she is return to the emergency room in 48 hours for repeat testing. Can take Tylenol as needed for pain. She was given strict return to the emergency room guidelines worsening pain, bleeding, any new symptoms. All qu estions were answered. Patient verbalized understanding and agrees with plan of care - Vital Signs Vital signs: Temp Pulse Resp BP Pulse Ox 98.7 F 72 16 134/78 H 100 02/17/20 20:25 02/17/20 20:25 02/17/20 20:25 02/17/20 20:25 02/17/20 20:25 - Laboratory Result Diagrams: 02/17/20 17:42 02/17/20 17:42 Laboratory results interpreted by me: 02/17/20 02/17/20 02/17/20 17:42 17:42 17:42 Hgb 10.8 L Hct 31.6 L MCV 78 L MCH 26.7 L RDW 16.1 H Sodium 136.0 L Glucose 127 H Beta HCG, Quant 295.99 H Ur Leukocyte Esterase SMALL H - Diagnostic Test Radiology reviewed: Reports reviewed Discharge - Discharge Clinical Impression: Pelvic pain during Condition: Stable Disposition: HOME, SELF-CARE Instructions: Pelvic Pain in ([facility]) Additional Instructions: Tylenol as needed for pain. Follow-up hCG in 48 hours. Return here if unable to secure an appointment or for any new or worsening symptoms. Referrals: EEF PATEL MD [ACTIVE STAFF] - Follow up tomorrow (call tomorrow for follow up appointment in 2 days )
[2020-02-17 20:51] VITALS: BP 132/74
== END 2020-02-17 20:52 | disposition home or self-care (01) ==
LOC: ER 17:20
DX: O26.891 Other specified pregnancy related conditions, first trimester (principal); M54.9 Dorsalgia, unspecified; R10.2 Pelvic and perineal pain; Z3A.01 Less than 8 weeks gestation of pregnancy
CPT/HCPCS: 36415; 76817; 80053; 81001; 84702; 85025; 86900; 86901; 99284